=== PATIENT | male | born 2000 ===

== ENCOUNTER → 2023-09-22 | Outpatient (CLI) | payer BC ==
[2023-09-22 10:18] LABS: Urine Bacteria None Seen /hpf (None Seen)
[2023-09-22 10:24] LABS: Basophils # (auto) 0 10 ^3/uL (0-0.2); Basophils % (auto) 0.6 % (0.0-2.0); Eosinophils # (auto) 0 10 ^3/uL (0-0.8); Eosinophils % (auto) 0.8 % (0.0-7.0); Hematocrit 43.6 % (41.0-53.0); Hemoglobin 14.3 g/dL (13.5-17.5); Lymphocytes # (auto) 1.6 10 ^3/uL (0.4-5.4); Lymphocytes % (auto) 26.6 % (10.0-50.0); Mean Corpuscular Hemoglobin 30.2 pg (28.0-32.0); Mean Corpuscular Hgb Conc. 32.8 g/dL (32.0-36.0); Mean Corpuscular Volume 91.8 fL (80.0-100.0); Monocytes # (auto) 0.4 10 ^3/uL (0-1.3); Neutrophils # (auto) 3.8 10 ^3/uL (1.6-8.6); Red Blood Cells 4.75 10^6/uL (4.5-5.90); Red Cell Distribution Width 13.7 % (11.8-14.3); White Blood Cell 5.9 10^3/uL (4.4-10.8)
[2023-09-22 11:40] LABS: Urine Blood Negative /uL (Negative); Urine Clarity Clear (Clear); Urine Color Light-Yellow (Yellow); Urine Mucus FEW (None Seen); Urine Protein, UAD Negative (Negative); Urine Specific Gravity 1.028 (1.001-1.035); Urine Urobilinogen Normal (Negative); Urine WBC 7 /hpf (0 - 3); Urine pH 5.5 (5.0-9.0)
[2023-09-22 12:19] LABS: Alanine Aminotransferase 21 U/L (7-40); Albumin 4.8 g/dL (3.2-4.8); Alkaline Phosphatase 87 U/L (46-116); Anion Gap 6 (5-15); Aspartate Aminotransferase 39 U/L (13-40); BUN/Creatinine Ratio 16.3 (10.0-20.0); Blood Urea Nitrogen 16 mg/dL (9-23); Calcium 9.8 mg/dL (8.5-10.1); Carbon Dioxide 25 mmol/L (20-30); Chloride 110 mmol/L (98-107); Cholesterol 109 mg/dL (< 200); Glucose 92 mg/dL (74-106); HDL Cholesterol 50 mg/dL (40-59); LDL Cholesterol 51 mg/dL (< 100); Sodium 141 mmol/L (136-145); Triglycerides 39 mg/dL (< 150)
[2023-09-22 12:20] LABS: Bilirubin, Total 1.6 mg/dL (0.2-1.0); Total Protein 7.2 g/dL (5.7-8.2)
[2023-09-24 09:47] LABS: Hepatitis B Core Total AB Negative (Negative)
[2023-09-24 12:29] LABS: Hepatitis A Total Antibody Positive (Negative); Hepatitis B Surface Antibody Negative (Negative); Hepatitis B Surface Antigen Negative (Negative); Hepatitis C Antibody Negative (Negative)
[2023-09-25 05:07] LABS: RPR Non Reactive (Non Reactive)
== END | disposition home or self-care (01) ==
LOC: LAB 10:06
PROVIDERS: ATTEND Student in an Organized Health Care Education/Training Program
DX: Z00.01 Encounter for general adult medical examination with abnormal findings (principal); Z11.3 Encounter for screening for infections with a predominantly sexual mode of transmission; E55.9 Vitamin D deficiency, unspecified
CPT/HCPCS: 36415; 80053; 80061; 81001; 82306; 83036; 84443; 85025; 86592; 86703; 86704; 86706; 86708; 86803; 87340